=== PATIENT | female | born 1990 | race African-American/Black ===

== ENCOUNTER 2018-04-02 17:32 | Emergency (ER) | payer OTHER ==
--- NOTE | 2018-04-02 20:15 | ER Document Report ---
ED General - General Chief Complaint: Laceration Stated Complaint: FINGER LACERATION Time Seen by Provider: 04/02/18 20:07 Mode of Arrival: Ambulatory Information source: Patient TRAVEL OUTSIDE OF THE [place] IN LAST 30 DAYS: No - HPI Onset: Just prior to arrival Onset/Duration: Sudden Quality of pain: Sharp Severity: Mild Notes: 28-year-old female presents to the emergency department with a laceration on her left ring finger longitudinal approximately 3 cm long and linear. She states it happened about 5 PM after a metal mop handle snapped and cut her. She endorsed persistent bleeding and pain at the site. Her last tetanus immunization was approximately 1 year ago. She denies any fevers, chills, redness at the site. - Related Data Allergies/Adverse Reactions: Sulfa (Sulfonamide Antibiotics) Allergy (Verified 04/02/18 17:35) Past Medical History - General Information source: Patient - Social History Smoking Status: Never Smoker Family History: Reviewed & Not Pertinent - Immunizations Immunizations up to date: Yes Hx Diphtheria, Pertussis, Tetanus Vaccination: Yes - Tetanus ~1 year ago. Review of Systems - Review of Systems Constitutional: No symptoms reported Cardiovascular: No symptoms reported Respiratory: No symptoms reported Skin: Other - cut on L ring finger Neurological/Psychological: No symptoms reported Physical Exam - Vital signs Vitals: Temp Pulse Resp BP Pulse Ox 98.5 F 77 16 121/44 L 98 04/02/18 17:36 04/02/18 17:36 04/02/18 17:36 04/02/18 17:36 04/02/18 17:36 - General General appearance: Appears well In distress: None - HEENT Head: Normocephalic Eyes: Normal Extraocular movements intact: Yes - Respiratory Respiratory status: No respiratory distress - Skin Skin Temperature: Warm Skin Moisture: Dry Skin Color: Normal Skin irregularity: Laceration - linear longitudinal 3cm laceration on L ring finger. Location of irregularity: Extremities Character of irregularity: Linear Course - Re-evaluation Re-evalutation: 04/02/18 22:05 Lidocaine 1% without epinephrine was used to numb the right ring finger a digital block was performed the wound was irrigated copiously with 500 mL of normal saline. 4-0 Prolene suture was used to approximate the wound. - Vital Signs Vital signs: Temp Pulse Resp BP Pulse Ox 97.9 F 92 18 123/78 99 04/02/18 22:00 04/02/18 22:00 04/02/18 22:00 04/02/18 22:00 04/02/18 22:00 Procedures - Laceration/Wound Repair Left Hand 4th digit Wound length (cm): 2.5 Wound's Depth, Shape: Linear Laceration pre-procedure: Sterile PPE donned, Chloraprep applied, Sterile drapes applied Anesthetic type: 1% Lidocaine Volume Anesthetic (mLs): 5 Wound explored: Clean Irrigated w/ Saline (mLs): 500 Wound Debrided: Minimal - Adipose tissue coming through the wound Wound Repaired With: Sutures Suture Size/Type: 4:0, Prolene Number of Sutures: 5 Layer Closure?: No Post-procedure wound care: Splint applied Post-procedure NV exam normal: Yes Complications: No Discharge - Discharge Clinical Impression: Laceration Condition: Good Disposition: HOME, SELF-CARE Instructions: Laceration Care ([facility]) Additional Instructions: You were seen in the emergency department for a cut on your ring finger. It is important to keep the wound clean and dry. Keep your finger in a splint to help promote healing. You can remove the splint as needed to clean the wound. Follow-up in 7-10 days for suture removal. If he is noticed any warmth redness around the site, any fevers chills or illness, go see her primary care provider or return to the emergency department. Referrals: CAMRON ESCALERA MD [Primary Care Provider] - Follow up as needed
[2018-04-02] MEDS ORDERED: LIDOCAINE 1% INJ-PF (10 MG/ML) 30 ML SDV INJ ONE (20:16)
[2018-04-02 23:17] VITALS: BP 123/78
== END 2018-04-02 23:17 | disposition home or self-care (01) ==
LOC: ER 17:32
PROC: 0HQGXZZ Repair Left Hand Skin, External Approach (ICD-10-PCS; principal; 2018-04-02)
DX: S61.215A Laceration without foreign body of left ring finger without damage to nail, initial encounter (principal); W45.8XXA Other foreign body or object entering through skin, initial encounter
CPT/HCPCS: 99283; 12001; J3490

== ENCOUNTER 2018-04-03 20:10 | Emergency (ER) | payer OTHER ==
[2018-04-03 20:43] VITALS: BP 123/68
[2018-04-03] MEDS ORDERED: IBUPROFEN 800 MG TABLET PO ONE (21:59)
--- NOTE | 2018-04-03 21:59 | ER Document Report ---
ED Suture/Wound Recheck - General Chief Complaint: Wound Recheck Stated Complaint: WOUND CHECK Time Seen by Provider: 04/03/18 21:15 Mode of Arrival: Ambulatory Information source: Patient Notes: 28-year-old female presented to ED for a recheck on her laceration to her left ring finger that she was seen yesterday for. She states that she had sutures placed yesterday and today the suture started opening up. Patient is alert and oriented respirations regular and unlabored speaking with. The laceration is open and I will have it reassessed by the provider that placed the sutures. TRAVEL OUTSIDE OF THE [place] IN LAST 30 DAYS: No - HPI Previous ED treatment: Laceration repair Quality of pain: Burning Severity: Moderate Pain Level: 2 Symptoms since procedure: Pain, Other - 2 sutures are opening up Exacerbated by: Movement Relieved by: Denies - Related Data Allergies/Adverse Reactions: Sulfa (Sulfonamide Antibiotics) Allergy (Verified 04/02/18 17:35) Past Medical History - General Information source: Patient - Social History Smoking Status: Never Smoker Frequency of alcohol use: None Drug Abuse: None Family History: Reviewed & Not Pertinent Patient has suicidal ideation: No Patient has homicidal ideation: No - Past Medical History Cardiac Medical History: Reports: None Pulmonary Medical History: Reports: None EENT Medical History: Reports: None Neurological Medical History: Reports: None Endocrine Medical History: Reports: None Renal/ Medical History: Reports: None Malignancy Medical History: Reports: None GI Medical History: Reports: None Musculoskeletal Medical History: Reports Hx Musculoskeletal Deformity, Reports Hx Musculoskeletal Trauma Skin Medical History: Reports None Psychiatric Medical History: Reports: None Traumatic Medical History: Reports: None Infectious Medical History: Reports: None Past Surgical History: Reports: Hx Orthopedic Surgery, Hx Tonsillectomy - Immunizations Immunizations up to date: Yes Hx Diphtheria, Pertussis, Tetanus Vaccination: Yes - Tetanus ~1 year ago. Review of Systems - Review of Systems Constitutional: No symptoms reported EENT: No symptoms reported Cardiovascular: No symptoms reported Respiratory: No symptoms reported Gastrointestinal: No symptoms reported Genitourinary: No symptoms reported Female Genitourinary: No symptoms reported Musculoskeletal: No symptoms reported Skin: Other - Laceration has opened up the sutures are still intact Hematologic/Lymphatic: No symptoms reported Neurological/Psychological: No symptoms reported -: Yes All other systems reviewed and negative Physical Exam - Vital signs Vitals: Temp Pulse Resp BP Pulse Ox 98.5 F 76 20 123/68 98 04/03/18 20:40 04/03/18 20:40 04/03/18 20:40 04/03/18 20:40 04/03/18 20:40 Interpretation: Normal - General General appearance: Appears well, Alert - HEENT Head: Normocephalic, Atraumatic Eyes: Normal Pupils: PERRL - Respiratory Respiratory status: No respiratory distress Chest status: Nontender Breath sounds: Normal Chest palpation: Normal - Cardiovascular Rhythm: Regular Heart sounds: Normal auscultation Murmur: No - Abdominal Inspection: Normal Distension: No distension Bowel sounds: Normal Tenderness: Nontender Organomegaly: No organomegaly - Back Back: Normal, Nontender - Extremities General upper extremity: Normal color, Normal ROM, Normal temperature General lower extremity: Normal inspection, Nontender, Normal color, Normal ROM , Normal temperature, Normal weight bearing. No: Keavn's sign Hand: Laceration - Laceration is not well approximated. The sutures are still intact. Minimal bleeding noted., No evidence of human bite, No evidence of FB - Neurological Neuro grossly intact: Yes Cognition: Normal Orientation: AAOx4 Matt Coma Scale Eye Opening: Spontaneous Matt Coma Scale Verbal: Oriented [place] Coma Scale Motor: Obeys Commands [place] Coma Scale Total: 15 Speech: Normal Motor strength normal: LUE, RUE, LLE, RLE Sensory: Normal - Psychological Associated symptoms: Normal affect, Normal mood - Skin Skin Temperature: Warm Skin Moisture: Dry Skin Color: Normal Course - Re-evaluation Re-evalutation: 04/03/18 23:35 Area cleaned well with surgical scrub rinsed with saline bacitracin applied as well as dressing and finger splint. Patient was instructed to clean the area 3 times a day and apply bacitracin. Patient to have the sutures removed in 7-10 days as previously instructed. Patient states she already has an appointment scheduled for the suture removal. Patient instructed to return to the ED for any signs or symptoms of infection to include redness swelling or drainage. There is no redness swelling or drainage at this time. Patient was discharged home. - Vital Signs Vital signs: Temp Pulse Resp BP Pulse Ox 98.5 F 76 20 123/68 98 04/03/18 20:40 04/03/18 20:40 04/03/18 20:40 04/03/18 20:40 04/03/18 20:40 Discharge - Discharge Clinical Impression: Encounter for re-check of laceration wound Condition: Stable Disposition: HOME, SELF-CARE Additional Instructions: You are here today for recheck on your laceration repair. I had the provider that sutured your finger look at it and he stated that the laceration has opened. Sutures are still intact please do not remove them. The sutures will need to be removed in 7-10 days by your primary doctor or the emergency room. SOAP CLEANSING: Gently wash the wound daily using a mild soap (like Ivory, Phisoderm, Neutrogena). Use warm water, rubbing gently until all debris, ooze, and crusting have been washed from the wound. Allow to dry briefly (about 10 minutes) after cleaning. Repeat this cleansing at least three times a day for the first two days and then once or twice a day. ANTIBIOTIC OINTMENT PROTECTION: Your wounds are such that dressing them is not practical or optional. After cleansing, you should apply a thin coating of antibiotic ointment ( Bacitracin, not Neosporin) to the wounds at least three times daily. This lessens infection risk, and may decrease the amount of scarring. Use a q-tip or dull butter knife, not your finger, to apply this ointment. Any debris or ooze which builds up in the ointment should be gently rubbed off with a sterile gauze pad. Harder crusting may need to be gently scrubbed off with a clean wash cloth with soap and warm water, perhaps applying a warm, wet wash cloth to the wound for ten minutes first. Development of redness, severe itching, or blistering may mean allergy to the ointment. See the doctor. FOLLOW-UP CARE: Your sutures should be removed in _7-10____ days. To facilitate a timely removal of your sutures, you may return to the Emergency Department at [facility]. You do not need to call for an appointment, but the best time to come in for suture removal is early in the morning. If you have been referred to another physician for follow-up care, call that physicians office for an appointment as you were instructed. If you experience a significant change in your laceration, or if you are concerned there may be an infection (swelling, redness, drainage, increasing tenderness, red streaks, tender lumps in the armpit or groin above the laceration, or fever) , return to the Emergency Department immediately re-evaluation. Referrals: CAMRON ESCALERA MD [Primary Care Provider] - Follow up as needed
== END 2018-04-03 22:49 | disposition home or self-care (01) ==
LOC: ER 20:10
DX: S61.215D Laceration without foreign body of left ring finger without damage to nail, subsequent encounter (principal); Z88.2 Allergy status to sulfonamides
CPT/HCPCS: 99282